=== PATIENT | female | born 1995 | race Caucasian/White ===

== ENCOUNTER 2020-12-24 17:59 | Outpatient (CLI) | payer OTHER | END 2020-12-25 16:02 | disposition home or self-care (01) | LOC: OBS/DEL 17:59 | PROVIDERS: ATTEND Obstetrics & Gynecology | DX: O60.03 Preterm labor without delivery, third trimester (principal); Z3A.38 38 weeks gestation of pregnancy ==

== ENCOUNTER → 2020-12-24 | Emergency (ER) | payer OTHER ==
[~2020-12-24] VITALS: Ht 172.7 cm; Wt 80.3 kg
[~2020-12-24] MED LIST: PRENATE ELITE1 EAC2 PO
== END | disposition home or self-care (01) ==
LOC: ER 10:37
DX: O26.893 Other specified pregnancy related conditions, third trimester (principal); E16.1 Other hypoglycemia; Z3A.28 28 weeks gestation of pregnancy; Z20.822 Contact with and (suspected) exposure to COVID-19

== ENCOUNTER 2021-01-10 17:14 | Inpatient (IN) | payer OTHER ==
[~2021-01-10] VITALS: Ht 172.7 cm; Wt 81.2 kg
== END 2021-01-13 09:24 | disposition home or self-care (01) | DRG 833 ==
LOC: ER 17:14 → OB/GYN 20:04
PROVIDERS: ADMIT Obstetrics & Gynecology; ATTEND Obstetrics & Gynecology
PROC: 4A1HXFZ Monitoring of Products of Conception, Cardiac Rhythm, External Approach (ICD-10-PCS; principal; 2021-01-10)
DX: O22.43 Hemorrhoids in pregnancy, third trimester (principal); O87.2 Hemorrhoids in the puerperium; O99.612 Diseases of the digestive system complicating pregnancy, second trimester; K59.00 Constipation, unspecified; Z3A.30 30 weeks gestation of pregnancy

== ENCOUNTER 2021-02-05 16:34 | Inpatient (IN) | payer OTHER ==
[~2021-02-05] VITALS: Ht 172.7 cm; Wt 81.6 kg
[2021-02-06] MEDS ORDERED: CLEARLAX119 GM (10:10)
[2021-02-06] MEDS ORDERED: HYDROCORT-PRAMO30 G1 (10:11)
== END 2021-02-13 13:44 | disposition home or self-care (01) | DRG 832 ==
LOC: OBS/DEL 16:34 → LDR 02-06 07:59 → OBS/DEL 02-06 07:59 → OB/GYN 02-08 16:47
PROVIDERS: ADMIT Student in an Organized Health Care Education/Training Program; ATTEND Student in an Organized Health Care Education/Training Program
PROC: 4A1HXFZ Monitoring of Products of Conception, Cardiac Rhythm, External Approach (ICD-10-PCS; principal; 2021-02-06)
DX: O47.03 False labor before 37 completed weeks of gestation, third trimester (principal); O22.43 Hemorrhoids in pregnancy, third trimester; O99.820 Streptococcus B carrier state complicating pregnancy; Z3A.33 33 weeks gestation of pregnancy

== ENCOUNTER 2021-03-20 07:24 | Inpatient (IN) | payer OTHER ==
[~2021-03-20] VITALS: Ht 172.7 cm; Wt 3.2 kg
[~2021-03-20 07:24] MED LIST changes: +CLEARLAX119 GM; +HYDROCORT-PRAMO30 G1
[2021-03-20] MEDS ORDERED: POLY119PG PO (08:57)
[2021-03-23] MEDS ORDERED: IBUPROFEN800 MG PO (07:45)
[2021-03-23] MEDS ORDERED: SIMETHICONE80 MG PO (07:45)
[2021-03-23] MEDS ORDERED: COLACE100 MG PO (07:45)
[2021-03-23] MEDS ORDERED: PERCOCET 5-3251 EACH PO (07:45)
== END 2021-03-23 12:31 | disposition home or self-care (01) | DRG 788 ==
LOC: LDR 07:24 → SURG-SUITE 22:07
PROVIDERS: ADMIT Obstetrics & Gynecology; ATTEND Obstetrics & Gynecology
PROC: 3E0P7VZ Introduction of Hormone into Female Reproductive, Via Natural or Artificial Opening (ICD-10-PCS; 2021-03-20)
PROC: 10907ZC Drainage of Amniotic Fluid, Therapeutic from Products of Conception, Via Natural or Artificial Opening (ICD-10-PCS; 2021-03-20)
PROC: 4A1HXFZ Monitoring of Products of Conception, Cardiac Rhythm, External Approach (ICD-10-PCS; 2021-03-20)
PROC: 10D00Z1 Extraction of Products of Conception, Low, Open Approach (ICD-10-PCS; principal; 2021-03-20 19:30)
DX: O62.1 Secondary uterine inertia (principal); O61.0 Failed medical induction of labor; O48.0 Post-term pregnancy; Z3A.40 40 weeks gestation of pregnancy; Z37.0 Single live birth